=== PATIENT | male | born 1985 | race Caucasian/White ===

== ENCOUNTER 2020-04-27 17:02 | Emergency (ER) | payer MEDICAID ==
[~2020-04-27] VITALS: Ht 172.7 cm; Wt 89.0 kg
[2020-04-27] MEDS ORDERED: HALOPERIDOL LACTATE 5MG/ML VIAL IM ONE (18:30)
[2020-04-27] MEDS ORDERED: OLANZAPINE 10 MG/VIAL IM ONE (18:30)
[2020-04-27 18:52] LABS: BASOPHILS % 0.8 % (0.0-2.0); EOSINOPHILS % 0.2 % (0.0-5.0); HEMATOCRIT. 48.2 % (42.0-52.0); HEMOGLOBIN. 16.4 g/dL (14.0-18.0); LYMPHOCYTES % 25.1 % (20.0-50.0); MEAN CORPUSCULAR HEMOGLOBIN 29.2 pg (28.0-32.0); MEAN CORPUSCULAR VOLUME 86.1 fL (80.0-94.0); MEAN PLATELET VOLUME 8.2 fl (7.4-10.4); MONOCYTES % 6.4 % (2.0-8.0); NEUTROPHILS % 67.5 % (40.0-76.0); PLATELET 265 x1000/uL (130-400); RED CELL DISTRIBUTION WIDTH 14.1 % (11.6-14.6)
[2020-04-27 18:56] LABS: CHLORIDE 102 mEq/L (98-107)
[2020-04-27 19:03] LABS: ETHANOL BLOOD 203 mg/dL
[2020-04-27 20:39] LABS: CLARITY URINE CLOUDY (CLEAR); COLOR URINE YELLOW (YELLOW); KETONES URINE 1+ (NEGATIVE); LEUKOCYTE ESTERASE URINE NEGATIVE (NEGATIVE); NITRITE URINE NEGATIVE (NEGATIVE); OCCULT BLOOD URINE NEGATIVE (NEGATIVE); PROTEIN URINE 2+ (NEGATIVE)
[2020-04-27 21:22] LABS: *AMPHETAMINES SCREEN URINE PRESUMTIVE POSITIVE (NEGATIVE); *BARBITURATES SCREEN URINE NEGATIVE (NEGATIVE); *BENZODIAZEPINES SCREEN URINE NEGATIVE (NEGATIVE); *COCAINE SCREEN URINE NEGATIVE (NEGATIVE); METHADONE URINE SCREEN NEGATIVE (NEGATIVE); OPIATES URINE SCREEN PRESUMTIVE POSITIVE (NEGATIVE); PHENCYCLIDINE URINE SCREEN NEGATIVE (NEGATIVE)
[2020-04-27 21:23] LABS: CANNABINOID URINE SCREEN NEGATIVE (NEGATIVE)
[2020-04-29 02:11] VITALS: BP 120/72
== END 2020-04-29 02:11 ==
LOC: ER 17:02
DX: R45.851 Suicidal ideations (principal); R45.1 Restlessness and agitation; I10 Essential (primary) hypertension
CPT/HCPCS: 36415; 80053; 80305; 80320; 81003; 85025; 93005; 96372; 99285; J1630; J3490; G0480